=== PATIENT | male | born 1985 | race Two or more races ===

== ENCOUNTER 2019-03-27 21:18 | Emergency (ER) | payer BC ==
[~2019-03-27] VITALS: Ht 165.1 cm; Wt 94.3 kg
[2019-03-27 21:52] VITALS: BP 134/86
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
--- NOTE | 2019-03-27 22:11 | NUR ---
ED Nurse Note: Pain meds given as ordered.
[2019-03-27] MEDS ORDERED: Acetaminophen 500mg (ES) tab ORAL ONE (22:15)
--- NOTE | 2019-03-27 22:20 | NUR ---
ED Nurse Note: Pt was sent down for CT.
--- NOTE | 2019-03-27 22:35 | NUR ---
ED Nurse Note: Pt returned from CT.
[2019-03-27] MEDS ORDERED: IBUPROFEN600 MG ORAL (23:09)
[2019-03-27 23:30] VITALS: BP 133/82
--- NOTE | 2019-03-27 23:30 | NUR ---
ER DISCHARGE NOTE: Patient is cleared to be discharged per Dr. Loera. Pt is aox4 on room air with stable vital signs. Pt was given dc and prescription instructions and was able to verbalize understanding. Pt id band removed . Pt is able to ambulate with steady gait and took all belongings.
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
== END 2019-03-27 23:30 | disposition home or self-care (01) ==
LOC: EMR 22:00
DX: S09.90XA Unspecified injury of head, initial encounter (principal); S80.811A Abrasion, right lower leg, initial encounter; S16.1XXA Strain of muscle, fascia and tendon at neck level, initial encounter; V43.52XA Car driver injured in collision with other type car in traffic accident, initial encounter; Y92.410 Unspecified street and highway as the place of occurrence of the external cause
CPT/HCPCS: 70450; 72125; 99284